=== PATIENT | female | born 1965 | race Caucasian/White ===

== ENCOUNTER → 2017-02-01 | Outpatient (CLI) | payer OTHER ==
--- NOTE | 2017-02-01 14:23 | XR ---
EXAMINATION TYPE: XR ankle limited RT DATE OF EXAM: 02/01/2017 2:03 PM COMPARISON: NONE HISTORY: 51 year-old female right ankle pain TECHNIQUE: 2 views FINDINGS: Ankle mortise appears congruent. Talar dome is intact. No acute fracture, subluxation, or dislocation . Large plantar calcaneal spur. Small delineation to the Achilles tendon. IMPRESSION: Large plantar calcaneal spur. No acute osseous abnormality seen.
== END | disposition home or self-care (01) ==
LOC: RADXRMAIN 13:41
PROVIDERS: ATTEND Internal Medicine
DX: M77.31 Calcaneal spur, right foot (principal)

== ENCOUNTER → 2017-03-29 | Outpatient (CLI) | payer OTHER ==
--- NOTE | 2017-03-30 11:19 | MM ---
Reason for exam: screening (asymptomatic). Last mammogram was performed 1 year and 1 month ago. History: Family history of breast cancer in paternal grandmother. Physical Findings: A clinical breast exam by your physician is recommended on an annual basis and results should be correlated with mammographic findings. MG Screening Mammo w CAD Bilateral CC and MLO view(s) were taken. Prior study comparison: March 06, 2016, bilateral MG screening mammo w CAD. December 30, 2010, bilateral digital screening mammo w/CAD. There are scattered fibroglandular densities. No significant changes when compared with prior studies. ASSESSMENT: Negative, BI-RAD 1 RECOMMENDATION: Routine screening mammogram of both breasts in 1 year.
== END | disposition home or self-care (01) ==
LOC: RADMAMWWP 13:34
PROVIDERS: ATTEND Internal Medicine
DX: Z12.31 Encounter for screening mammogram for malignant neoplasm of breast (principal)

== ENCOUNTER → 2017-04-14 | Outpatient (CLI) | payer OTHER ==
--- NOTE | 2017-04-14 10:18 | P.HPOB ---
History of Present Illness H&P Date: 04/14/17 Chief Complaint: The patient is here for her routine gynecologic exam This is a 51-year-old G1 P line with LMP of 01/13/2016 was here for her routine gynecologic exam. She states she has not had any vaginal bleeding since 2015. She is without gynecologic complaints. Review of Systems She is gained 30 pounds over the last year. This was after losing 30 pounds the year prior. She denies respiratory cardiac in G.I. problems. Past Medical History Past Medical History: No Reported History, Asthma, Hyperlipidemia, Hypertension Additional Past Medical History / Comment(s): Degenerative disc problems in her back and neck as well as sciatic nerve problems History of Any Multi-Drug Resistant Organisms: None Reported Past Surgical History: Adenoidectomy, Section, Ear Surgery, Orthopedic Surgery, Tonsillectomy Additional Past Surgical History / Comment(s): liver biopsy Past Psychological History: Depression Smoking Status: Current every day smoker (She admits to 5 cigarettes per day) Past Alcohol Use History: None Reported Past Drug Use History: None Reported Medications and Allergies Home Medications and Allergies Comment(s): Zetia at 10 mg daily, Neurontin 600 mg TID meloxicam 7.5 mg daily, metoprolol 25 mg daily, baclofen 10 mg TID, albuterol inhaler 2 puffs Q ID Allergies Allergy/AdvReac Type Severity Reaction Status Date / Time No Known Allergies Allergy Verified 04/05/14 16:08 Exam Blood pressure 129/84, height 5'7", weight 183 pounds, temperature 98.2, pulse 73. This is a well-developed well-nourished white female who was alert and oriented times 3 in no acute distress HEENT: Within normal limits. NECK: Supple without mass or thyromegaly. CHEST AND LUNGS: Clear to auscultation. HEART: Regular rate and rhythm. BREASTS: Are without mass or discharge. AXILLARY EXAM: Negative for adenopathy. BACK: Negative for CVA tenderness. ABDOMEN: Soft, nontender, without palpable masses. PELVIC EXAM: Normal external genitalia. Cervix and vagina appear normal. There is no unusual discharge. The uterus is midposition, nongravid size and nontender. There are no palpable adnexal masses or tenderness. RECTAL EXAM: Negative for master tenderness and is negative for occult blood. EXTREMITIES: Nontender. Assessment and Plan Plan: IMPRESSION: menopausal 51-year-old normal gynecologic exam PLAN: 1. Pap smear was deferred since she had a normal one last year 2. Breast examination was discussed. 3. Mammogram was done on 03/29/2017 and was negative. This will be repeated in one year 4. The patient was instructed to call if she has any postmenopausal bleeding. 5. Osteoporosis prevention was discussed. 6. She will return in one year.
== END | disposition home or self-care (01) ==
LOC: WWCWWP 09:15
PROVIDERS: ATTEND Obstetrics & Gynecology
DX: Z01.419 Encounter for gynecological examination (general) (routine) without abnormal findings (principal); F17.210 Nicotine dependence, cigarettes, uncomplicated